=== PATIENT | male | born 1950 | race Caucasian/White ===

== ENCOUNTER 2020-08-30 06:50 | Day surgery (SDC) | payer MEDICARE, BC ==
[2020-08-30] MEDS ORDERED: Sodium Chloride 0.9% 1,000 ML IV SCH (07:30)
[2020-08-30] MEDS ORDERED: fentaNYL 100 MCG/2 ML SDV ONE (07:39)
[2020-08-30] MEDS ORDERED: Midazolam 1 MG/ML 2 ML SDV ONE (07:39)
[2020-08-30] MEDS ORDERED: Propofol 200 MG/20 ML SDV ONE (07:39)
--- NOTE | 2020-08-30 10:24 | OR ---
DATE OF PROCEDURE: 08/30/2020 SURGEON: Reginald Olivares MD PROCEDURE: Colonoscopy. FINDINGS: Normal colonoscopy. COMPLICATIONS: None. [employer] ARCHITECT: None. ANESTHESIA: MAC. PREOPERATIVE DIAGNOSIS: Screening colonoscopy. POSTOPERATIVE DIAGNOSIS: Screening colonoscopy. RISKS: Risks, benefits, alternatives, and limitations including, but not limited to infection, bleeding, perforation, false positives and false negatives were explained to the patient who wished to proceed. PROCEDURE IN DETAIL: The patient was placed in left lateral decubitus position. Digital rectal exam was performed without abnormality. Scope was introduced and advanced atraumatically to the ileocecal valve. Scope was brought back to the ascending, transverse, descending colon, and retroflexed. No evidence of old or new blood. No masses. No polyps. No colitis. No abnormalities on retroflexion. The prep was acceptable. Approximately 90% of the luminal surface could be seen. Greater than 8 minutes was spent removing the scope. The patient tolerated the procedure well. Reginald Olivares MD /[id number]
== END 2020-08-30 10:05 | disposition home or self-care (01) ==
LOC: JP.SDS 06:50
PROVIDERS: ATTEND Surgery
DX: Z12.11 Encounter for screening for malignant neoplasm of colon (principal); I10 Essential (primary) hypertension; E78.5 Hyperlipidemia, unspecified; E66.9 Obesity, unspecified; Z68.30 Body mass index [BMI] 30.0-30.9, adult; Z87.891 Personal history of nicotine dependence
CPT/HCPCS: J2250; J2704; J3010; J7030